=== PATIENT | male | born 1945 | race Caucasian/White ===

== ENCOUNTER 2018-03-27 03:02 | Inpatient (IN) | END 2018-04-01 16:43 | disposition home or self-care (01) | DRG 871 ==

== ENCOUNTER 2018-04-23 13:46 | Inpatient (IN) | END 2018-04-29 16:40 | disposition home or self-care (01) | DRG 713 ==

== ENCOUNTER 2019-02-12 10:43 | Inpatient (IN) | payer MEDICARE, OTHER ==
[~2019-02-12] VITALS: Ht 162.6 cm; Wt 73.0 kg
[~2019-02-12 10:43] MED LIST: LEVO500T48 PO; TAMS0.4C2 PO
--- NOTE | 2019-02-12 12:25 | ERD ---
ER Documentation Chief Complaint Chief Complaint lt side testicular pain /swelling , lt ear pain HPI 74-year-old male presenting with complaints of left testicular pain and swelling over the past 4 months. He states that he has tried to make an appointment with his urologist but was unable to stating that "he would not see me". He denies any associated dysuria. No alleviating or exacerbating factors. Pain is a 6 out of 10, aching. No associated fever, chills, nausea, vomiting. He does have difficulty urinating but no dysuria. He has a history of BPH with urinary tract calculi that were removed last year. He has also had a TURP. Denies weight loss, night sweats, or any other associated symptoms. ROS All systems reviewed and are negative except as per history of present illness. Medications Home Meds Reported Medications Lisinopril* (Lisinopril*) 20 Mg Tablet, 20 MG PO DAILY, #30 TAB 02/12/19 Labetalol Hcl* (Labetalol Hcl*) 100 Mg Tablet, 100 MG PO BID, TAB 02/12/19 Chlorthalidone* (Chlorthalidone*) 25 Mg Tablet, 25 MG PO DAILY, TAB 02/12/19 Levothyroxine Sodium* (Levothyroxine Sodium*) 50 Mcg Tablet, 50 MCG PO BEFORE BREAKFAST, #30 TAB 02/12/19 Amlodipine Besylate* (Amlodipine Besylate*) 10 Mg Tablet, 10 MG PO DAILY, #30 TAB 02/12/19 Finasteride* (Finasteride*) 5 Mg Tablet, 5 MG PO DAILY, TAB 02/12/19 Tamsulosin Hcl* (Flomax*) 0.4 Mg Cap.er.24h, 0.4 MG PO HS, CAP 02/12/19 Discontinued Reported Medications Tamsulosin Hcl* (Tamsulosin Hcl*) 0.4 Mg Cap.er.24h, 0.4 MG PO HS, CAP 03/27/18 Discontinued Scripts Levofloxacin* (Levaquin*) 500 Mg Tablet, 500 MG PO DAILY for 7 Days, #7 TAB Prov:CHRISTOPHER STEPHENSON 04/29/18 Allergies Allergies: Coded Allergies: No Known Allergy (Unverified , 02/12/19) PMhx/Soc History of Surgery: Yes (TURP) Anesthesia Reaction: No Hx Neurological Disorder: No Hx Respiratory Disorders: No Hx Cardiac Disorders: Yes (HTN) Hx Psychiatric Problems: No Hx Miscellaneous Medical Probl: Yes (BPH) Hx Alcohol Use: No Hx Substance Use: No Hx Tobacco Use: No FmHx Family History: No diabetes Physical Exam Vitals Vital Signs Date Temp Pulse Resp B/P (MAP) Pulse Ox O2 O2 Flow FiO2 Time Delivery Rate 02/12/19 98.2 64 18 158/74 100 Room Air 14:14 (102) 02/12/19 99.0 77 18 189/91 98 10:46 (123) Physical Exam Const: No acute distress Head: Atraumatic Eyes: Normal Conjunctiva ENT: Normal External Ears, Nose and Mouth. Neck: Full range of motion. No meningismus. Resp: Clear to auscultation bilaterally Cardio: Regular rate and rhythm, no murmurs Abd: Soft, non tender, non distended. Normal bowel sounds Exam: Scrotum: Normal Hernia: None Testes/Epid: Right testicle normal to palpation without tenderness. Left testicle mildly tender to palpation and enlarged compared to the right. No epididymal tenderness bilaterally Cremaster: Reflex intact Lymph: No inguinal lymphadenopathy Discharge: None Skin: No petechiae or rashes Back: No midline or flank tenderness Ext: No cyanosis, or edema Neur: Awake and alert Psych: Normal Mood and Affect Result Diagram: 02/12/19 1358 02/12/19 1358 Results 24 hrs Laboratory Tests Test 02/12/19 13:20 02/12/19 13:58 Urine Color ILIR Urine Clarity CLOUDY Urine pH 5.0 Urine Specific [place] 1.018 Urine Ketones NEGATIVE mg/dL Urine Nitrite NEGATIVE mg/dL Urine Bilirubin NEGATIVE mg/dL Urine Urobilinogen NEGATIVE mg/dL Urine Leukocyte Esterase 3+ Levi/ul Urine Microscopic RBC 7 /HPF Urine Microscopic WBC > 182 /HPF Urine Squamous Epithelial Cells FEW /HPF Urine Bacteria MODERATE /HPF Urine Mucus MANY /HPF Urine Hemoglobin NEGATIVE mg/dL Urine Glucose NEGATIVE mg/dL Urine Total Protein 2+ mg/dl White Blood Count 9.3 10^3/ul Red Blood Count 4.93 10^6/ul Hemoglobin 11.9 g/dl Hematocrit 38.4 % Mean Corpuscular Volume 77.9 fl Mean Corpuscular Hemoglobin 24.1 pg Mean Corpuscular Hemoglobin Concent 31.0 g/dl Red Cell Distribution Width 19.9 % Platelet Count 346 10^3/UL Mean Platelet Volume 8.7 fl Immature Granulocytes % 0.400 % Neutrophils % 64.8 % Lymphocytes % 22.4 % Monocytes % 9.7 % Eosinophils % 2.2 % Basophils % 0.5 % Nucleated Red Blood Cells % 0.0 /100WBC Immature Granulocytes # 0.040 10^3/ul Neutrophils # 6.0 10^3/ul Lymphocytes # 2.1 10^3/ul Monocytes # 0.9 10^3/ul Eosinophils # 0.2 10^3/ul Basophils # 0.1 10^3/ul Nucleated Red Blood Cells # 0.0 10^3/ul Sodium Level 143 mmol/L Potassium Level 4.2 mmol/L Chloride Level 106 mmol/L Carbon Dioxide Level 26 mmol/L Anion Gap 11 Blood Urea Nitrogen 14 mg/dl Creatinine 0.88 mg/dl Est Glomerular Filtrat Rate mL/min mL/min Glucose Level 109 mg/dl Calcium Level 10.4 mg/dl Total Bilirubin 0.4 mg/dl Direct Bilirubin 0.00 mg/dl Indirect Bilirubin 0.4 mg/dl Aspartate Amino Transf (AST/SGOT) 27 IU/L Alanine Aminotransferase (ALT/SGPT) 26 IU/L Alkaline Phosphatase 106 IU/L Total Protein 9.1 g/dl Albumin 4.4 g/dl Globulin 4.70 g/dl Albumin/Globulin Ratio 0.93 Current Medications Medications Dose Sig/Eda Start Time Status Last (Trade) Ordered Route PRN Stop Time Admin Dose Reason Admin 150 ml @ ONCE STAT 02/12/19 DC 02/12/19 Levofloxacin/ 100 mls/hr IVPB 14:26 14:51 Dextrose 02/12/19 15:55 Ketorolac 30 mg ONCE STAT 02/12/19 DC 02/12/19 Tromethamine IV 15:03 15:25 (Toradol) 02/12/19 15:04 Ondansetron 4 mg BRIDGE ORDER 02/12/19 DC HCl (Zofran PRN IV 15:30 Inj) NAUSEA/VOMITI 02/12/19 15:55 NG 650 mg ER BRIDGE 02/12/19 DC Acetaminophen PRN PO 15:30 (Tylenol .MILD PAIN 02/12/19 15:54 Tab) 1-3 OR TEMP Amlodipine 10 mg DAILY PO 02/13/19 Besylate 09:00 (Norvasc) 25 mg DAILY PO 02/13/19 Chlorthalidon 09:00 e (Hygroton) Finasteride 5 mg DAILY PO 02/13/19 (Proscar) 09:00 Labetalol 100 mg BID PO 02/12/19 UNV HCl 21:00 (Normodyne) 50 mcg BEFORE 02/13/19 Levothyroxine BREAKFAST 07:00 Sodium PO (Synthroid) Lisinopril 20 mg DAILY PO 02/13/19 (Zestril) 09:00 Tamsulosin 0.4 mg HS PO 02/12/19 HCl 21:00 (Flomax) IV Flush 3 ml PER 02/12/19 (NS 3 ml) PROTOCOL IV 15:30 Ondansetron 4 mg Q6H PRN 02/12/19 HCl (Zofran IV 15:30 Inj) NAUSEA/VOMITI NG 650 mg Q6H PRN 02/12/19 Acetaminophen PO .PAIN 1-3 15:30 (Tylenol OR TEMP Tab) 1 tab Q6H PRN 02/12/19 Acetaminophen PO .MOD PAIN 15:30 / 4-6 Hydrocodone Bitart ([place] (5/325)) Morphine 2 mg Q4H PRN 02/12/19 UNV Sulfate IV .SEVERE 15:30 (morphine) PAIN 7-10 Magnesium 30 ml DAILY PRN 02/12/19 Hydroxide PO 15:30 (Milk Of Mag) .CONSTIPATION Famotidine 20 mg Q12 PO 02/12/19 UNV (Pepcid) 21:00 Ceftriaxone 50 ml @ Q24H IVPB 02/12/19 UNV Sodium 100 mls/hr 16:00 Procedures/MDM EMERGENT LABS AND DIAGNOSTIC STUDIES: Lab Results above were reviewed and interpreted by me. CBC: no clinically significant anemia or evidence of infection CMP: No evidence of clinically significant electrolyte abnormality, acidosis, renal failure, hypoglycemia, liver disease, or biliary obstruction UA: + evidence of infection Radiology Results as interpreted by Radiology below were reviewed by Jean Rose MD: US Scrotum: Infiltrating heterogeneous echogenicity lesion along the inferior and midportion of the left testicle measuring 2.0 x 1.0 x 1.3 cm. Findings are suspicious for neoplasm. Hematoma or infection could have a similar appearance. Clinical correlation is required. Initial Nursing notes reviewed. Previous Medical Records requested via the Electronic Health Record. EMERGENCY DEPARTMENT COURSE / MEDICAL DECISION MAKING: Patient is presenting with left scrotal swelling that has progressively worsened. No evidence of Edi's gangrene or infection. Ultrasound showed evidence of extratesticular mass. He did have a UTI for which she was given levofloxacin. No evidence of sepsis at this time. Spoke with the urologist on- call, who recommended admission for further work-up. Accepting Care Team: Current data and ongoing care discussed. Time: Time of admission Primary Provider: Dr. Manning Consulting: Dr. Palma Outstanding Data: none Departure Diagnosis: Primary Impression: Scrotal mass Additional Impression: Left testicular pain Condition: Stable KARLA ROSE MD Feb 12, 2019 12:25
[2019-02-12] MEDS ORDERED: TAMS-14 PO (13:18)
[2019-02-12] MEDS ORDERED: FINA5TAB4 PO (13:18)
[2019-02-12] MEDS ORDERED: AMLO-147 PO (13:19)
[2019-02-12] MEDS ORDERED: LEVO50TA7 PO (13:19)
[2019-02-12] MEDS ORDERED: CHLO25TA2 PO (13:20)
[2019-02-12] MEDS ORDERED: LABE100T7 PO (13:20)
[2019-02-12] MEDS ORDERED: LISI-471 PO (13:20)
[2019-02-12] MEDS ORDERED: LEVOFLOXACIN 750MG/D5W (PMX) 150 ML IVPB STA (14:26)
[2019-02-12] MEDS ORDERED: KETOROLAC 30 MG INJ IV STA (15:03)
[2019-02-12] MEDS ORDERED: ONDANSETRON 4 MG INJ IV PRN ×2 (15:30)
[2019-02-12] MEDS ORDERED: ACETAMINOPHEN 325 MG TAB PO PRN ×2 (15:30)
[2019-02-12] MEDS ORDERED: morphine 2 MG INJ IV PRN (15:30)
[2019-02-12] MEDS ORDERED: NACL 0.9% 3 ML SYG IV SCH (15:30)
[2019-02-12] MEDS ORDERED: MAGNESIUM HYDROXIDE 30ML CUP PO PRN (15:30)
--- NOTE | 2019-02-12 15:52 | HP ---
Date/Time of Note Date/Time of Note DATE: 02/12/19 TIME: 15:48 Assessment/Plan Lines/Catheters IV C[facility] Type (from [facility]): Saline Lock Assessment/Plan Hospital Course Assessment and plan 1. infiltrating heterogeneous echogenicity lesion along the inferior and midportion of the left testicle measuring 2.0 x 1.0 x 1.3 cm. Urologist notified. Continue with analgesics for now. Follow-up with recommendations. 2. Urinary tract infection. Follow-up on urine culture. Will place on antibiotic for now. 3. BPH. Resume on finasteride and tamsulosin. 4. Hypothyroidism. Continue levothyroxine. 5. Hypertension. Continue antihypertensives. Will adjust as needed. 6. Microcytic hypochromic anemia. Follow-up on iron level. Discussed POC with Dr. Queen Result Diagram: 02/12/19 1358 02/12/19 1358 Results 24hrs Laboratory Tests Test 02/12/19 13:20 02/12/19 13:58 Urine Color ILIR Urine Clarity CLOUDY A Urine pH 5.0 Urine Specific [place] 1.018 Urine Ketones NEGATIVE Urine Nitrite NEGATIVE Urine Bilirubin NEGATIVE Urine Urobilinogen NEGATIVE Urine Leukocyte Esterase 3+ H Urine Microscopic RBC 7 H Urine Microscopic WBC > 182 H Urine Squamous Epithelial Cells FEW Urine Bacteria MODERATE Urine Mucus MANY A Urine Hemoglobin NEGATIVE Urine Glucose NEGATIVE Urine Total Protein 2+ H White Blood Count 9.3 # Red Blood Count 4.93 # Hemoglobin 11.9 #L Hematocrit 38.4 #L Mean Corpuscular Volume 77.9 L Mean Corpuscular Hemoglobin 24.1 L Mean Corpuscular Hemoglobin Concent 31.0 L Red Cell Distribution Width 19.9 #H Platelet Count 346 # Mean Platelet Volume 8.7 Immature Granulocytes % 0.400 Neutrophils % 64.8 Lymphocytes % 22.4 Monocytes % 9.7 Eosinophils % 2.2 Basophils % 0.5 Nucleated Red Blood Cells % 0.0 Immature Granulocytes # 0.040 H Neutrophils # 6.0 Lymphocytes # 2.1 Monocytes # 0.9 Eosinophils # 0.2 Basophils # 0.1 Nucleated Red Blood Cells # 0.0 Sodium Level 143 Potassium Level 4.2 Chloride Level 106 Carbon Dioxide Level 26 Anion Gap 11 Blood Urea Nitrogen 14 Creatinine 0.88 Est Glomerular Filtrat Rate mL/min Glucose Level 109 Calcium Level 10.4 H Total Bilirubin 0.4 Direct Bilirubin 0.00 Indirect Bilirubin 0.4 Aspartate Amino Transf (AST/SGOT) 27 Alanine Aminotransferase (ALT/SGPT) 26 Alkaline Phosphatase 106 Total Protein 9.1 H Albumin 4.4 Globulin 4.70 H Albumin/Globulin Ratio 0.93 HPI/ROS Admit Date/Time Admit Date/Time Hx of Present Illness This is a 74-year-old male with history of hypertension, BPH, nephrolithiasis and hydronephrosis, TURP procedure in March 2018, who came to the hospital due to reports of testicular pain. Patient reports that he had recent prostate surgery in March 2018. He states that he is not sure if his current testicular pain is from that. Reports that for the past 4 months he has been h aving increased swelling on left testicle with associated pain. He does follow- up with his primary care provider in [place] Dr. Hernandez. He states that when he was examined by them previously that there was no mention for any seriousness for his pain. Due to increasing swelling and pain on left testicle patient did come to the hospital for further evaluation. Patient did get testicular ultras ound that did show Infiltrating heterogeneous echogenicity lesion along the inferior and midportion of the left testicle measuring 2.0 x 1.0 x 1.3 cm. Findings are suspicious for neoplasm. He also did have positive leukocyte esterase test suspicious for UTI. He was afebrile on arrival. No leukocytosis noted. Patient denies any other associated symptoms. Denies any chest pain or fever. Denies any weight loss. Only reports having increased testicular pain. Denies any discharge or hematuria. We will evaluate him for the aformentiond issues. ROS 12 point review of systems obtained entirely negative except that mentioned in the history of present illness PMH/Family/Social Past Medical History Medical/surgical history 1. Hypertension 2. BPH 3. Nephrolithiasis with hydronephrosis 4. TURP procedure in March 2018 Medications Current Medications Levofloxacin/ Dextrose 150 ml @ 100 mls/hr ONCE STAT IVPB Last administered on 02/12/19at 14:51; Admin Dose 100 MLS/HR; Start 02/12/19 at 14:26; Stop 02/12/19 at 15:55 Ondansetron HCl (Zofran Inj) 4 mg BRIDGE ORDER PRN IV NAUSEA/VOMITING; Start 02/12/19 at 15:30; Stop 02/13/19 at 15:29 Acetaminophen (Tylenol Tab) 650 mg ER BRIDGE PRN PO .MILD PAIN 1-3 OR TEMP; Start 02/12/19 at 15:30; Stop 02/13/19 at 15:29 Amlodipine Besylate (Norvasc) 10 mg DAILY PO ; Start 02/13/19 at 09:00; Status UNV Chlorthalidone (Hygroton) 25 mg DAILY PO ; Start 02/13/19 at 09:00; Status UNV Finasteride (Proscar) 5 mg DAILY PO ; Start 02/13/19 at 09:00; Status UNV Labetalol HCl (Normodyne) 100 mg BID PO ; Start 02/12/19 at 21:00; Status UNV Levothyroxine Sodium (Synthroid) 50 mcg BEFORE BREAKFAST PO ; Start 02/13/19 at 07:00; Status UNV Lisinopril (Zestril) 20 mg DAILY PO ; Start 02/13/19 at 09:00; Status UNV Tamsulosin HCl (Flomax) 0.4 mg HS PO ; Start 02/12/19 at 21:00; Status UNV IV Flush (NS 3 ml) 3 ml PER PROTOCOL IV ; Start 02/12/19 at 15:30; Status UNV Ondansetron HCl (Zofran Inj) 4 mg Q6H PRN IV NAUSEA/VOMITING; Start 02/12/19 at 15:30; Status UNV Acetaminophen (Tylenol Tab) 650 mg Q6H PRN PO .PAIN 1-3 OR TEMP; Start 02/12/19 at 15:30; Status UNV Acetaminophen/ Hydrocodone Bitart ([place] (5/325)) 1 tab Q6H PRN PO .MOD PAIN 4- 6; Start 02/12/19 at 15:30; Status UNV Morphine Sulfate (morphine) 2 mg Q4H PRN IV .SEVERE PAIN 7-10; Start 02/12/19 at 15:30; Status UNV Magnesium Hydroxide (Milk Of Mag) 30 ml DAILY PRN PO .CONSTIPATION; Start 02/12/19 at 15:30; Status UNV Famotidine (Pepcid) 20 mg Q12 PO ; Start 02/12/19 at 21:00; Status UNV Coded Allergies: No Known Allergy (Unverified , 02/12/19) Past Surgical History Past Surgical Hx: other Family History Significant Family History: no pertinent family hx Social History Smoking Status: Never smoker Exam/Review of Systems Vital Signs Vitals Vital Signs Date Temp Pulse Resp B/P (MAP) Pulse Ox O2 O2 Flow FiO2 Time Delivery Rate 02/12/19 98.2 64 18 158/74 100 Room Air 14:14 (102) Exam Constitutional: alert, oriented Psych: nl mood/affect Head: normocephalic Eyes: nl conjunctiva Neck: supple Respiratory: clear to auscultation Cardiovascular: regular rate and rhythm Gastrointestinal: soft, non-tender Musculoskeletal: nl extremities to inspection Neurological: OBGYN SPECIALIST II-XII intact, nl mental status, nl speech Skin: nl GWEN Turcios NP Feb 12, 2019 15:52
[2019-02-12] MEDS: CEFTRIAXONE 1 GM/50 ML (PMX) 50 ML IVPB SCH (16:23)
[2019-02-12 18:00] VITALS: BP 162/88; PULSE 66; RESP 16
[2019-02-12 18:15] VITALS: Ht 162.6 cm; Wt 73.0 kg
[2019-02-12] MEDS: HYDROCODONE/APAP (5/325) TAB PO PRN (18:30)
[2019-02-12 20:00] VITALS: BP 129/73; PULSE 65; RESP 14
[2019-02-12] MEDS: FAMOTIDINE 20 MG TAB PO SCH (20:48)
[2019-02-12] MEDS: TAMSULOSIN (SR) 0.4 MG CAP PO SCH (20:48)
[2019-02-12] MEDS: LABETALOL 100 MG TAB PO SCH (20:49)
--- NOTE | 2019-02-12 20:57 | CONS ---
Assessment/Plan Assessment/Plan Hospital Course (Demo Recall) 74-year-old male presented to the emergency room with left testicular pain. Patient states that for the past 4 months he has been having increased swelling on left testicle with associated pain.. Patient is known to have had a history of bladder stone that was removed. He also had an enlarged prostate for which he underwent transurethral resection in March 2018. He has been voiding well and the urine has been clear. On the physical examination the left testis is hard and clinically consistent with the left epididymoorchitis. Recommend: Antibiotic, urine culture has been sent already. There is no indication for surgical intervention at the present time. Consultation Date/Type/Reason Admit Date/Time Date of Consultation: Feb 12, 2019 Type of Consult Urology Reason for Consultation Left testicular pain Requesting Provider: MUSA SANDERS Date/Time of Note DATE: 02/12/19 TIME: 20:45 Hx of Present Illness 74-year-old male presented to the emergency room with left testicular pain. Patient states that for the past 4 months he has been having increased swelling on left testicle with associated pain.. Patient is known to have had a history of bladder stone that was removed. He also had an enlarged prostate for which he underwent transurethral resection in March 2018. He has been voiding well and the urine has been clear. Constitutional: no complaints; No chills Eyes: no complaints ENT: no complaints Respiratory: no complaints; No shortness of breath Cardiovascular: no complaints; No chest pain Gastrointestinal: no complaints; No nausea, No vomiting Genitourinary: other (Pain and swelling in the left testicle) Musculoskeletal: no complaints Skin: no complaints Neurologic: no complaints Endocrine: no complaints Psychological: no complaints Immunologic: no complaints Past Medical History Medical History: diabetes, hypertension, hypothyroid, renal disease, other (History of kidney stones as well) Home Meds Reported Medications Lisinopril* (Lisinopril*) 20 Mg Tablet, 20 MG PO DAILY, #30 TAB 02/12/19 Labetalol Hcl* (Labetalol Hcl*) 100 Mg Tablet, 100 MG PO BID, TAB 02/12/19 Chlorthalidone* (Chlorthalidone*) 25 Mg Tablet, 25 MG PO DAILY, TAB 02/12/19 Levothyroxine Sodium* (Levothyroxine Sodium*) 50 Mcg Tablet, 50 MCG PO BEFORE BREAKFAST, #30 TAB 02/12/19 Amlodipine Besylate* (Amlodipine Besylate*) 10 Mg Tablet, 10 MG PO DAILY, #30 TAB 02/12/19 Finasteride* (Finasteride*) 5 Mg Tablet, 5 MG PO DAILY, TAB 02/12/19 Tamsulosin Hcl* (Flomax*) 0.4 Mg Cap.er.24h, 0.4 MG PO HS, CAP 02/12/19 Discontinued Reported Medications Tamsulosin Hcl* (Tamsulosin Hcl*) 0.4 Mg Cap.er.24h, 0.4 MG PO HS, CAP 03/27/18 Discontinued Scripts Levofloxacin* (Levaquin*) 500 Mg Tablet, 500 MG PO DAILY for 7 Days, #7 TAB Prov:CHRISTOPHER STEPHENSON 04/29/18 Medications Current Medications Amlodipine Besylate (Norvasc) 10 mg DAILY PO ; Start 02/13/19 at 09:00 Chlorthalidone (Hygroton) 25 mg DAILY PO ; Start 02/13/19 at 09:00 Finasteride (Proscar) 5 mg DAILY PO ; Start 02/13/19 at 09:00 Labetalol HCl (Normodyne) 100 mg BID PO ; Start 02/12/19 at 21:00 Levothyroxine Sodium (Synthroid) 50 mcg BEFORE BREAKFAST PO ; Start 02/13/19 at 07:00 Lisinopril (Zestril) 20 mg DAILY PO ; Start 02/13/19 at 09:00 Tamsulosin HCl (Flomax) 0.4 mg HS PO ; Start 02/12/19 at 21:00 IV Flush (NS 3 ml) 3 ml PER PROTOCOL IV ; Start 02/12/19 at 15:30 Ondansetron HCl (Zofran Inj) 4 mg Q6H PRN IV NAUSEA/VOMITING; Start 02/12/19 at 15:30 Acetaminophen (Tylenol Tab) 650 mg Q6H PRN PO .PAIN 1-3 OR TEMP; Start 02/12/19 at 15:30 Acetaminophen/ Hydrocodone Bitart ([place] (5/325)) 1 tab Q6H PRN PO .MOD PAIN 4- 6 Last administered on 02/12/19at 18:30; Admin Dose 1 TAB; Start 02/12/19 at 15:30 Morphine Sulfate (morphine) 2 mg Q4H PRN IV .SEVERE PAIN 7-10; Start 02/12/19 at 15:30 Magnesium Hydroxide (Milk Of Mag) 30 ml DAILY PRN PO .CONSTIPATION; Start 02/12/19 at 15:30 Famotidine (Pepcid) 20 mg Q12 PO ; Start 02/12/19 at 21:00 Ceftriaxone Sodium 50 ml @ 100 mls/hr Q24H IVPB Last administered on 02/12/19at 16:23; Admin Dose 100 MLS/HR; Start 02/12/19 at 16:00 Allergies: Coded Allergies: No Known Allergy (Unverified , 02/12/19) Past Surgical History Past Surgical Hx: other (Cystolitholopaxy, transurethral resection of prostate) Social History Alcohol Use: occasionally Smoking Status: Former smoker Drug Use: none Exam/Review of Systems Exam Vitals Vital Signs Date Temp Pulse Resp B/P (MAP) Pulse Ox O2 O2 Flow FiO2 Time Delivery Rate 02/12/19 98.2 65 14 129/73 96 20:00 (91) 02/12/19 Room Air 18:00 Constitutional: alert, oriented Psych: no complaints Head: normocephalic Eyes: nl conjunctiva ENMT: nl external ears & nose Neck: supple Respiratory: normal air movement; No wheezing Cardiovascular: No jugular venous distention (JVD) Gastrointestinal: soft, non-tender Genitourinary - Male: nl penis, other (Left testis is soft however he does have hard area consistent with epididymo-orchitis there is no fluctuation to suggest an abscess) Extremities: No calf tenderness Neurological: nl mental status Skin: nl turgor Results Result Diagram: 02/12/19 1358 02/12/19 1358 Results 24hrs Laboratory Tests Test 02/12/19 13:20 02/12/19 13:58 Urine Color ILIR Urine Clarity CLOUDY A Urine pH 5.0 Urine Specific [place] 1.018 Urine Ketones NEGATIVE Urine Nitrite NEGATIVE Urine Bilirubin NEGATIVE Urine Urobilinogen NEGATIVE Urine Leukocyte Esterase 3+ H Urine Microscopic RBC 7 H Urine Microscopic WBC > 182 H Urine Squamous Epithelial Cells FEW Urine Bacteria MODERATE Urine Mucus MANY A Urine Hemoglobin NEGATIVE Urine Glucose NEGATIVE Urine Total Protein 2+ H White Blood Count 9.3 # Red Blood Count 4.93 # Hemoglobin 11.9 #L Hematocrit 38.4 #L Mean Corpuscular Volume 77.9 L Mean Corpuscular Hemoglobin 24.1 L Mean Corpuscular Hemoglobin Concent 31.0 L Red Cell Distribution Width 19.9 #H Platelet Count 346 # Mean Platelet Volume 8.7 Immature Granulocytes % 0.400 Neutrophils % 64.8 Lymphocytes % 22.4 Monocytes % 9.7 Eosinophils % 2.2 Basophils % 0.5 Nucleated Red Blood Cells % 0.0 Immature Granulocytes # 0.040 H Neutrophils # 6.0 Lymphocytes # 2.1 Monocytes # 0.9 Eosinophils # 0.2 Basophils # 0.1 Nucleated Red Blood Cells # 0.0 Sodium Level 143 Potassium Level 4.2 Chloride Level 106 Carbon Dioxide Level 26 Anion Gap 11 Blood Urea Nitrogen 14 Creatinine 0.88 Est Glomerular Filtrat Rate mL/min Glucose Level 109 Calcium Level 10.4 H Total Bilirubin 0.4 Direct Bilirubin 0.00 Indirect Bilirubin 0.4 Aspartate Amino Transf (AST/SGOT) 27 Alanine Aminotransferase (ALT/SGPT) 26 Alkaline Phosphatase 106 Total Protein 9.1 H Albumin 4.4 Globulin 4.70 H Albumin/Globulin Ratio 0.93 Imaging Imaging Testicular ultrasound:Infiltrating heterogeneous echogenicity lesion along the inferior and midportion of the left testicle measuring 2.0 x 1.0 x 1.3 cm. Findings are suspicious for neoplasm. Hematoma or infection could have a similar appearance. Clinical correlation is required. Medications Medication Current Medications Amlodipine Besylate (Norvasc) 10 mg DAILY PO ; Start 02/13/19 at 09:00 Chlorthalidone (Hygroton) 25 mg DAILY PO ; Start 02/13/19 at 09:00 Finasteride (Proscar) 5 mg DAILY PO ; Start 02/13/19 at 09:00 Labetalol HCl (Normodyne) 100 mg BID PO ; Start 02/12/19 at 21:00 Levothyroxine Sodium (Synthroid) 50 mcg BEFORE BREAKFAST PO ; Start 02/13/19 at 07:00 Lisinopril (Zestril) 20 mg DAILY PO ; Start 02/13/19 at 09:00 Tamsulosin HCl (Flomax) 0.4 mg HS PO ; Start 02/12/19 at 21:00 IV Flush (NS 3 ml) 3 ml PER PROTOCOL IV ; Start 02/12/19 at 15:30 Ondansetron HCl (Zofran Inj) 4 mg Q6H PRN IV NAUSEA/VOMITING; Start 02/12/19 at 15:30 Acetaminophen (Tylenol Tab) 650 mg Q6H PRN PO .PAIN 1-3 OR TEMP; Start 02/12/19 at 15:30 Acetaminophen/ Hydrocodone Bitart ([place] (5/325)) 1 tab Q6H PRN PO .MOD PAIN 4- 6 Last administered on 02/12/19at 18:30; Admin Dose 1 TAB; Start 02/12/19 at 15:30 Morphine Sulfate (morphine) 2 mg Q4H PRN IV .SEVERE PAIN 7-10; Start 02/12/19 at 15:30 Magnesium Hydroxide (Milk Of Mag) 30 ml DAILY PRN PO .CONSTIPATION; Start 02/12/19 at 15:30 Famotidine (Pepcid) 20 mg Q12 PO ; Start 02/12/19 at 21:00 Ceftriaxone Sodium 50 ml @ 100 mls/hr Q24H IVPB Last administered on 02/12/19at 16:23; Admin Dose 100 MLS/HR; Start 02/12/19 at 16:00 CARLTON LOCO MD Feb 12, 2019 20:55
[2019-02-13 02:00] VITALS: BP 109/60; PULSE 60; RESP 16
[2019-02-13] MEDS: HYDROCODONE/APAP (5/325) TAB PO PRN (02:30)
[2019-02-13] MEDS: LEVOTHYROXINE 50 MCG TAB PO SCH (06:35)
[2019-02-13 08:00] VITALS: BP 162/71; PULSE 81; RESP 18
[2019-02-13] MEDS: LISINOPRIL 20 MG TAB PO SCH (10:42)
[2019-02-13] MEDS: FAMOTIDINE 20 MG TAB PO SCH ×2 (10:42→20:45)
[2019-02-13] MEDS: AMLODIPINE 10 MG TAB PO SCH (10:42)
[2019-02-13] MEDS: LABETALOL 100 MG TAB PO SCH ×2 (10:43→20:45)
[2019-02-13] MEDS: FINASTERIDE 5 MG TAB PO SCH (10:43)
[2019-02-13] MEDS: CHLORTHALIDONE 25 MG TAB PO SCH (10:43)
[2019-02-13 10:45] VITALS: BP 154/77; PULSE 57; RESP 18
--- NOTE | 2019-02-13 12:46 | PN ---
Date/Time of Note Date/Time of Note DATE: 02/13/19 TIME: 12:36 Assessment/Plan VTE Prophylaxis Risk score (from [facility])>0 risk: 2 SCD applied (from [facility]): Yes Pharmacological prophylaxis: LMWH Lines/Catheters IV Catheter Type (from [facility]): Saline Lock Urinary Cath still in place: No Assessment/Plan Hospital Course Assessment and plan 1. infiltrating heterogeneous echogenicity lesion along the inferior and midportion of the left testicle measuring 2.0 x 1.0 x 1.3 cm. Urologist notified. noted with left epididymoorchitis. Continue with analgesics for now. 2. Urinary tract infection. Follow-up on urine culture. continue abx ID consult 3. BPH. continue on finasteride and tamsulosin. 4. Hypothyroidism. Continue levothyroxine. 5. Hypertension. Continue antihypertensives. Will adjust as needed. 6. Microcytic hypochromic anemia. Discussed POC with Dr. Queen Result Diagram: 02/13/19 0458 02/13/19 0458 Results 24hrs Laboratory Tests Test 02/12/19 13:20 02/12/19 13:58 02/13/19 04:58 Urine Color ILIR Urine Clarity CLOUDY A Urine pH 5.0 Urine Specific [place] 1.018 Urine Ketones NEGATIVE Urine Nitrite NEGATIVE Urine Bilirubin NEGATIVE Urine Urobilinogen NEGATIVE Urine Leukocyte Esterase 3+ H Urine Microscopic RBC 7 H Urine Microscopic WBC > 182 H Urine Squamous Epithelial Cells FEW Urine Bacteria MODERATE Urine Mucus MANY A Urine Hemoglobin NEGATIVE Urine Glucose NEGATIVE Urine Total Protein 2+ H White Blood Count 9.3 # 7.8 Red Blood Count 4.93 # 4.48 L Hemoglobin 11.9 #L 10.8 L Hematocrit 38.4 #L 35.6 L Mean Corpuscular Volume 77.9 L 79.5 L Mean Corpuscular Hemoglobin 24.1 L 24.1 L Mean Corpuscular Hemoglobin Concent 31.0 L 30.3 L Red Cell Distribution Width 19.9 #H 19.7 H Platelet Count 346 # 312 Mean Platelet Volume 8.7 9.1 Immature Granulocytes % 0.400 0.600 H Neutrophils % 64.8 62.7 Lymphocytes % 22.4 21.6 Monocytes % 9.7 11.9 H Eosinophils % 2.2 2.6 Basophils % 0.5 0.6 Nucleated Red Blood Cells % 0.0 0.0 Immature Granulocytes # 0.040 H 0.050 H Neutrophils # 6.0 4.9 Lymphocytes # 2.1 1.7 Monocytes # 0.9 0.9 Eosinophils # 0.2 0.2 Basophils # 0.1 0.1 Nucleated Red Blood Cells # 0.0 0.0 Sodium Level 143 140 Potassium Level 4.2 4.0 Chloride Level 106 106 Carbon Dioxide Level 26 24 Anion Gap 11 10 Blood Urea Nitrogen 14 17 Creatinine 0.88 0.91 Est Glomerular Filtrat Rate mL/min Glucose Level 109 115 Calcium Level 10.4 H 9.7 Total Bilirubin 0.4 0.3 Direct Bilirubin 0.00 0.00 Indirect Bilirubin 0.4 0.3 Aspartate Amino Transf (AST/SGOT) 27 20 Alanine Aminotransferase (ALT/SGPT) 26 18 Alkaline Phosphatase 106 95 Total Protein 9.1 H 7.1 # Albumin 4.4 3.5 Globulin 4.70 H 3.60 H Albumin/Globulin Ratio 0.93 0.97 Hemoglobin A1c 5.8 Phosphorus Level 4.4 Magnesium Level 1.9 Triglycerides Level 282 H Cholesterol Level 178 LDL Cholesterol, Calculated 97 HDL Cholesterol 25 L Cholesterol/HDL Ratio 7.1 Thyroid Stimulating Hormone (TSH) 9.540 H Free Thyroxine Index Pending Thyroxine (T4) Pending Triiodothyronine (T3) Uptake 34.5 Subjective 24 Hr Interval Summary Free Text/Dictation patient resting at this time. reports less testicular pain Exam/Review of Systems Exam Vitals Vital Signs Date Temp Pulse Resp B/P (MAP) Pulse Ox O2 O2 Flow FiO2 Time Delivery Rate 02/13/19 57 18 154/77 96 10:45 (102) 02/13/19 98.8 08:00 02/12/19 Room Air 18:00 Intake and Output 02/12/19 02/12/19 02/13/19 1515:00 23:00 07:00 IntakeIntake Total 300 ml 500 ml OutputOutput Total 500 ml BalanceBalance -200 ml 500 ml Constitutional: alert, oriented Psych: nl mood/affect Eyes: nl conjunctiva Neck: supple, non-tender Respiratory: clear to auscultation Cardiovascular: regular rate and rhythm Gastrointestinal: soft, non-tender Genitourinary - Male: other (left testicular mass ) Musculoskeletal: nl extremities to inspection; No swelling 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, nl mental status, nl speech Skin: nl turgor Results Results 24hrs Laboratory Tests Test 02/12/19 13:20 02/12/19 13:58 02/13/19 04:58 Urine Color ILIR Urine Clarity CLOUDY A Urine pH 5.0 Urine Specific [place] 1.018 Urine Ketones NEGATIVE Urine Nitrite NEGATIVE Urine Bilirubin NEGATIVE Urine Urobilinogen NEGATIVE Urine Leukocyte Esterase 3+ H Urine Microscopic RBC 7 H Urine Microscopic WBC > 182 H Urine Squamous Epithelial Cells FEW Urine Bacteria MODERATE Urine Mucus MANY A Urine Hemoglobin NEGATIVE Urine Glucose NEGATIVE Urine Total Protein 2+ H White Blood Count 9.3 # 7.8 Red Blood Count 4.93 # 4.48 L Hemoglobin 11.9 #L 10.8 L Hematocrit 38.4 #L 35.6 L Mean Corpuscular Volume 77.9 L 79.5 L Mean Corpuscular Hemoglobin 24.1 L 24.1 L Mean Corpuscular Hemoglobin Concent 31.0 L 30.3 L Red Cell Distribution Width 19.9 #H 19.7 H Platelet Count 346 # 312 Mean Platelet Volume 8.7 9.1 Immature Granulocytes % 0.400 0.600 H Neutrophils % 64.8 62.7 Lymphocytes % 22.4 21.6 Monocytes % 9.7 11.9 H Eosinophils % 2.2 2.6 Basophils % 0.5 0.6 Nucleated Red Blood Cells % 0.0 0.0 Immature Granulocytes # 0.040 H 0.050 H Neutrophils # 6.0 4.9 Lymphocytes # 2.1 1.7 Monocytes # 0.9 0.9 Eosinophils # 0.2 0.2 Basophils # 0.1 0.1 Nucleated Red Blood Cells # 0.0 0.0 Sodium Level 143 140 Potassium Level 4.2 4.0 Chloride Level 106 106 Carbon Dioxide Level 26 24 Anion Gap 11 10 Blood Urea Nitrogen 14 17 Creatinine 0.88 0.91 Est Glomerular Filtrat Rate mL/min Glucose Level 109 115 Calcium Level 10.4 H 9.7 Total Bilirubin 0.4 0.3 Direct Bilirubin 0.00 0.00 Indirect Bilirubin 0.4 0.3 Aspartate Amino Transf (AST/SGOT) 27 20 Alanine Aminotransferase (ALT/SGPT) 26 18 Alkaline Phosphatase 106 95 Total Protein 9.1 H 7.1 # Albumin 4.4 3.5 Globulin 4.70 H 3.60 H Albumin/Globulin Ratio 0.93 0.97 Hemoglobin A1c 5.8 Phosphorus Level 4.4 Magnesium Level 1.9 Triglycerides Level 282 H Cholesterol Level 178 LDL Cholesterol, Calculated 97 HDL Cholesterol 25 L Cholesterol/HDL Ratio 7.1 Thyroid Stimulating Hormone (TSH) 9.540 H Free Thyroxine Index Pending Thyroxine (T4) Pending Triiodothyronine (T3) Uptake 34.5 Medications Medication Current Medications Amlodipine Besylate (Norvasc) 10 mg DAILY PO Last administered on 02/13/19 10:42; Admin Dose 10 MG; Start 02/13/19 at 09:00 Chlorthalidone (Hygroton) 25 mg DAILY PO Last administered on 02/13/19 10:43; Admin Dose 25 MG; Start 02/13/19 at 09:00 Finasteride (Proscar) 5 mg DAILY PO Last administered on 02/13/19 10:43; Admin Dose 5 MG; Start 02/13/19 at 09:00 Labetalol HCl (Normodyne) 100 mg BID PO Last administered on 02/13/19 10:43; Admin Dose 100 MG; Start 02/12/19 at 21:00 Levothyroxine Sodium (Synthroid) 50 mcg BEFORE BREAKFAST PO Last administered on 02/13/19 06:35; Admin Dose 50 MCG; Start 02/13/19 at 07:00 Lisinopril (Zestril) 20 mg DAILY PO Last administered on 02/13/19 10:42; Admin Dose 20 MG; Start 02/13/19 at 09:00 Tamsulosin HCl (Flomax) 0.4 mg HS PO Last administered on 02/12/19at 20:48; Admin Dose 0.4 MG; Start 02/12/19 at 21:00 IV Flush (NS 3 ml) 3 ml PER PROTOCOL IV ; Start 02/12/19 at 15:30 Ondansetron HCl (Zofran Inj) 4 mg Q6H PRN IV NAUSEA/VOMITING; Start 02/12/19 at 15:30 Acetaminophen (Tylenol Tab) 650 mg Q6H PRN PO .PAIN 1-3 OR TEMP; Start 02/12/19 at 15:30 Acetaminophen/ Hydrocodone Bitart ([place] (5/325)) 1 tab Q6H PRN PO .MOD PAIN 4- 6 Last administered on 02/13/19at 02:30; Admin Dose 1 TAB; Start 02/12/19 at 15:30 Morphine Sulfate (morphine) 2 mg Q4H PRN IV .SEVERE PAIN 7-10; Start 02/12/19 at 15:30 Magnesium Hydroxide (Milk Of Mag) 30 ml DAILY PRN PO .CONSTIPATION; Start 02/12/19 at 15:30 Famotidine (Pepcid) 20 mg Q12 PO Last administered on 02/13/19at 10:42; Admin Dose 20 MG; Start 02/12/19 at 21:00 Ceftriaxone Sodium 50 ml @ 100 mls/hr Q24H IVPB Last administered on 02/12/19at 16:23; Admin Dose 100 MLS/HR; Start 02/12/19 at 16:00 GWEN KAISER NP Feb 13, 2019 12:46
[2019-02-13 14:00] VITALS: BP 146/74; PULSE 76; RESP 18
[2019-02-13] MEDS: CEFTRIAXONE 1 GM/50 ML (PMX) 50 ML IVPB SCH (16:12)
--- NOTE | 2019-02-13 16:50 | CONS ---
DATE OF ADMISSION: 02/12/2019 DATE OF CONSULTATION: 02/13/2019 TYPE OF CONSULTATION: Infectious Disease. REASON FOR CONSULTATION: Antibiotic management. HISTORY OF PRESENT ILLNESS: Leo Mehta is a 74-year-old male who comes in wit h left-sided testicular pain and swelling. He also complains of left ear pain. Left testicle has be en swollen over the past four months. He said he tried to make an appointment with his urologist, ej t the urologist would not see him. He does not have dysuria. His pain is 6/10 and aching in nature. He has no fever or chills. He has no nausea or vomiting. He has difficulty urinating, but no dysu [place]. He has a history of BPH with urinary tract calculi that were removed last year. He also had a history of TURP. He does not have weight loss, night sweats or any other associated symptoms. The p atient has hypertension and has been placed on Levaquin. PAST MEDICAL HISTORY: As outlined. FAMILY HISTORY: Noncontributory. SOCIAL HISTORY: Does not smoke, drink or abuse drugs. ALLERGIES: NONE TO PENICILLIN, SULFA OR FOODS. MEDICATIONS: Per chart. REVIEW OF SYSTEMS: Noncontributory. PHYSICAL EXAMINATION: GENERAL: He is alert, responsive, in no acute distress. VITAL SIGNS: Stable. He is afebrile. SKIN: Without generalized rash. HEENT: Within normal limits. NECK: Supple. LYMPH NODES: None palpable. CHEST: Decreased breath sounds at the bases. HEART: Without murmur or gallop. ABDOMEN: Soft, nontender, without organosplenomegaly or masses. GENITOURINARY: Scrotum is normal. He has no hernias. The right testicle is normal. Left testicle is mildly tender to palpation and enlarged compared to the right. No epididymal tenderness bilateral ly. NEUROLOGICAL: Within normal limits. ANCILLARY LABORATORY DATA: White count is 9.3, H and H of 11.9 and 38.4, platelet count 346,000. BU N and creatinine 14/0.88. Glucose of 109. Urine shows 3+ leukocyte esterase, greater than 182 white cells per high-powered field with moderate bacteria. As noted, his white count was 9.3 with 65% neutrophils. The patient was started on Levaquin and ceft riaxone. There is no evidence of Edi's gangrene or infection. Ultrasound showed evidence of ex tratesticular mass. He did have a UTI and was started on Levaquin. HOSPITAL COURSE: The patient was seen by Dr. Palma in urology for the left testicular pain. His t esticle was consistent with left epididymal orchitis. Recommend antibiotics. Urine culture was sent . There is no indication for surgical intervention at the present time. The patient is on ceftriaxo ne. Levaquin was discontinued. We will observe his progress and if he has not progressed rapidly, w e will take a more vigorous approach to his antibiotic therapy. I want to thank the hospitalist, Dr. Palma, for asking us to see this patient. Dictated By: ALVIN MONTENEGRO MD, JD/MAMTA Conf#: [id number] DID#: [id number]
--- NOTE | 2019-02-13 19:29 | CONS ---
Consult Date/Type/Reason Admit Date/Time Feb 12, 2019 at 15:13 Initial Consult Date 02/12/19 Type of Consultation: Urology Reason for Consultation Left epididymoorchitis Requesting Provider: MUSA SANDERS Date/Time of Note DATE: 02/13/19 TIME: 19:26 Subjective Patient states that he is feeling better and his pain is less Objective Vitals Vital Signs Date Temp Pulse Resp B/P (MAP) Pulse Ox O2 O2 Flow FiO2 Time Delivery Rate 02/13/19 98.0 76 18 146/74 96 14:00 (98) 02/12/19 Room Air 18:00 Intake and Output 02/12/19 02/12/19 02/13/19 1515:00 23:00 07:00 IntakeIntake Total 300 ml 500 ml OutputOutput Total 500 ml BalanceBalance -200 ml 500 ml Exam The left testis and epididymis remains hard but less painful and less swollen Results/Medications Result Diagram: 02/13/19 0458 02/13/19 0458 Results 24 hrs Laboratory Tests Test 02/13/19 04:52 02/13/19 04:58 Iron Level 40 Total Iron Binding Capacity 385 Percent Iron Saturation 10 L White Blood Count 7.8 Red Blood Count 4.48 L Hemoglobin 10.8 L Hematocrit 35.6 L Mean Corpuscular Volume 79.5 L Mean Corpuscular Hemoglobin 24.1 L Mean Corpuscular Hemoglobin Concent 30.3 L Red Cell Distribution Width 19.7 H Platelet Count 312 Mean Platelet Volume 9.1 Immature Granulocytes % 0.600 H Neutrophils % 62.7 Lymphocytes % 21.6 Monocytes % 11.9 H Eosinophils % 2.6 Basophils % 0.6 Nucleated Red Blood Cells % 0.0 Immature Granulocytes # 0.050 H Neutrophils # 4.9 Lymphocytes # 1.7 Monocytes # 0.9 Eosinophils # 0.2 Basophils # 0.1 Nucleated Red Blood Cells # 0.0 Sodium Level 140 Potassium Level 4.0 Chloride Level 106 Carbon Dioxide Level 24 Anion Gap 10 Blood Urea Nitrogen 17 Creatinine 0.91 Est Glomerular Filtrat Rate mL/min Glucose Level 115 Hemoglobin A1c 5.8 Calcium Level 9.7 Phosphorus Level 4.4 Magnesium Level 1.9 Total Bilirubin 0.3 Direct Bilirubin 0.00 Indirect Bilirubin 0.3 Aspartate Amino Transf (AST/SGOT) 20 Alanine Aminotransferase (ALT/SGPT) 18 Alkaline Phosphatase 95 Total Protein 7.1 # Albumin 3.5 Globulin 3.60 H Albumin/Globulin Ratio 0.97 Triglycerides Level 282 H Cholesterol Level 178 LDL Cholesterol, Calculated 97 HDL Cholesterol 25 L Cholesterol/HDL Ratio 7.1 Thyroid Stimulating Hormone (TSH) 9.540 H Free Thyroxine Index 1.76 Thyroxine (T4) 5.1 L Triiodothyronine (T3) Uptake 34.5 Home Meds Reported Medications Lisinopril* (Lisinopril*) 20 Mg Tablet, 20 MG PO DAILY, #30 TAB 02/12/19 Labetalol Hcl* (Labetalol Hcl*) 100 Mg Tablet, 100 MG PO BID, TAB 02/12/19 Chlorthalidone* (Chlorthalidone*) 25 Mg Tablet, 25 MG PO DAILY, TAB 02/12/19 Levothyroxine Sodium* (Levothyroxine Sodium*) 50 Mcg Tablet, 50 MCG PO BEFORE BREAKFAST, #30 TAB 02/12/19 Amlodipine Besylate* (Amlodipine Besylate*) 10 Mg Tablet, 10 MG PO DAILY, #30 TAB 02/12/19 Finasteride* (Finasteride*) 5 Mg Tablet, 5 MG PO DAILY, TAB 02/12/19 Tamsulosin Hcl* (Flomax*) 0.4 Mg Cap.er.24h, 0.4 MG PO HS, CAP 02/12/19 Discontinued Reported Medications Tamsulosin Hcl* (Tamsulosin Hcl*) 0.4 Mg Cap.er.24h, 0.4 MG PO HS, CAP 03/27/18 Discontinued Scripts Levofloxacin* (Levaquin*) 500 Mg Tablet, 500 MG PO DAILY for 7 Days, #7 TAB Prov:CHRISTOPHER STEPHENSON 04/29/18 Medications Current Medications Amlodipine Besylate (Norvasc) 10 mg DAILY PO Last administered on 02/13/19at 1 0:42; Admin Dose 10 MG; Start 02/13/19 at 09:00 Chlorthalidone (Hygroton) 25 mg DAILY PO Last administered on 02/13/19at 10:43; Admin Dose 25 MG; Start 02/13/19 at 09:00 Finasteride (Proscar) 5 mg DAILY PO Last administered on 02/13/19at 10:43; Admin Dose 5 MG; Start 02/13/19 at 09:00 Labetalol HCl (Normodyne) 100 mg BID PO Last administered on 02/13/19 10:43; Admin Dose 100 MG; Start 02/12/19 at 21:00 Levothyroxine Sodium (Synthroid) 50 mcg BEFORE BREAKFAST PO Last administered on 02/13/19 06:35; Admin Dose 50 MCG; Start 02/13/19 at 07:00 Lisinopril (Zestril) 20 mg DAILY PO Last administered on 02/13/19 10:42; Admin Dose 20 MG; Start 02/13/19 at 09:00 Tamsulosin HCl (Flomax) 0.4 mg HS PO Last administered on 02/12/19 20:48; Admin Dose 0.4 MG; Start 02/12/19 at 21:00 IV Flush (NS 3 ml) 3 ml PER PROTOCOL IV ; Start 02/12/19 at 15:30 Ondansetron HCl (Zofran Inj) 4 mg Q6H PRN IV NAUSEA/VOMITING; Start 02/12/19 at 15:30 Acetaminophen (Tylenol Tab) 650 mg Q6H PRN PO .PAIN 1-3 OR TEMP; Start 02/12/19 at 15:30 Acetaminophen/ Hydrocodone Bitart ([place] (5/325)) 1 tab Q6H PRN PO .MOD PAIN 4- 6 Last administered on 02/13/19at 02:30; Admin Dose 1 TAB; Start 02/12/19 at 15:30 Morphine Sulfate (morphine) 2 mg Q4H PRN IV .SEVERE PAIN 7-10; Start 02/12/19 at 15:30 Magnesium Hydroxide (Milk Of Mag) 30 ml DAILY PRN PO .CONSTIPATION; Start 02/12/19 at 15:30 Famotidine (Pepcid) 20 mg Q12 PO Last administered on 02/13/19 10:42; Admin Dose 20 MG; Start 02/12/19 at 21:00 Ceftriaxone Sodium 50 ml @ 100 mls/hr Q24H IVPB Last administered on 02/13/19 16:12; Admin Dose 100 MLS/HR; Start 02/12/19 at 16:00 Enoxaparin Sodium (Lovenox) 40 mg DAILY SC ; Start 02/14/19 at 09:00 Assessment/Plan Hospital Course (Demo Recall) 74-year-old male presented to the emergency room with left testicular pain. Patient states that for the past 4 months he has been having increased swelling on left testicle with associated pain.. Patient is known to have had a history of bladder stone that was removed. He also had an enlarged prostate for which he underwent transurethral resection in March 2018. He has been voiding well and the urine has been clear. Patient was admitted with left epididymoorchitis. His pain has come down. Urine culture showing 100,000 colony per mL of gram-negative rods. Sensitivities pending. Plan: Continue the antibiotics until we get the sensitivity of the urine culture then we could discharge him home on the appropriate antibiotic. CARLTON LOCO MD Feb 13, 2019 19:29
[2019-02-13 20:00] VITALS: BP 128/68; PULSE 64; RESP 18
[2019-02-13] MEDS: TAMSULOSIN (SR) 0.4 MG CAP PO SCH (20:45)
[2019-02-14 02:00] VITALS: BP 114/66; PULSE 69; RESP 17
[2019-02-14] MEDS: LEVOTHYROXINE 50 MCG TAB PO SCH (06:12)
[2019-02-14 08:00] VITALS: BP 136/85; PULSE 82; RESP 18
[2019-02-14] MEDS: FINASTERIDE 5 MG TAB PO SCH (08:51)
[2019-02-14] MEDS: CHLORTHALIDONE 25 MG TAB PO SCH (08:52)
[2019-02-14] MEDS: LISINOPRIL 20 MG TAB PO SCH (08:52)
[2019-02-14] MEDS: AMLODIPINE 10 MG TAB PO SCH (08:52)
[2019-02-14] MEDS: LABETALOL 100 MG TAB PO SCH (08:52)
[2019-02-14] MEDS: FAMOTIDINE 20 MG TAB PO SCH (08:53)
[2019-02-14] MEDS ORDERED: ENOXAPARIN 40 MG/0.4 ML SYG SC SCH (09:00)
[2019-02-14 14:00] VITALS: BP 132/64; PULSE 76; RESP 18
[2019-02-14] MEDS ORDERED: SACC250C PO (14:30)
[2019-02-14] MEDS ORDERED: SULF1TAB31 PO (14:30)
--- NOTE | 2019-02-14 14:35 | PDOCDIS ---
Discharge Instructions DIAGNOSIS Discharge Diagnosis 1. infiltrating heterogeneous echogenicity lesion along the inferior and midportion of the left testicle measuring 2.0 x 1.0 x 1.3 cm. noted with left epididymoorchitis. 2. Urinary tract infection. 3. BPH. 4. Hypothyroidism. 5. Hypertension. 6. Microcytic hypochromic anemia. CONDITION [id number] Patient Condition: [id number] Stable HOME CARE INSTRUCTIONS: [id number] Diet Instructions: [id number] Low Fat /Cholesterol FOLLOW UP/APPOINTMENTS Follow-up Plan 1. Follow up with Dr. Jony Palma in one week Office Address [address] [address] Office GWEN KAISER NP Feb 14, 2019 14:35
--- NOTE | 2019-02-14 14:39 | DS ---
Date/Time of Note Date/Time of Note DATE: 02/14/19 TIME: 14:38 Discharge Summary Admission/Discharge Info Admit Date/Time Feb 12, 2019 at 15:13 Discharge Date/Time Discharge Diagnosis 1. infiltrating heterogeneous echogenicity lesion along the inferior and midp ortion of the left testicle measuring 2.0 x 1.0 x 1.3 cm. noted with left epididymoorchitis. 2. Urinary tract infection. 3. BPH. 4. Hypothyroidism. 5. Hypertension. 6. Microcytic hypochromic anemia. Patient Condition: Stable Hospital Course This is a 74-year-old male with history of hypertension, BPH, nephrolithiasis and hydronephrosis, TURP procedure in March 2018, who came to the hospital due to reports of testicular pain. Patient reports that he had recent prostate surgery in March 2018. He states that he is not sure if his current testicular pain is from that. Reports that for the past 4 months he has been having increased swelling on left testicle with associated pain. He does follow-up with his primary care provider in [place] Dr. Hernandez. He states that when he was examined by them previously that there was no mention for any seriousness for his pain. Due to increasing swelling and pain on left testicle patient did come to the hospital for further evaluation. Patient did get testicular ultrasound that did show Infiltrating heterogeneous echogenicity lesion along the inferior and midportion of the left testicle measuring 2.0 x 1.0 x 1.3 cm. Findings are suspicious for neoplasm. He also did have positive leukocyte esterase test suspicious for UTI. He was afebrile on arrival. No leukocytosis noted. Patient denies any other associated symptoms. Denies any chest pain or fever. Denies any weight loss. Only reports having increased t esticular pain. She was seen by ID consult as well as by urologist. Patient was noted with left epididymoorchitis per urologist. He also was noted with E. coli in the urine. We did optimize him with antibiotics. During his course of stay he did improve. He did report less testicular pain. He was advised for outpatient follow-up with urology. He was optimized medically with finasteride and tamsulosin for BPH and levothyroxine for hypothyroidism and antihypertensives for high blood pressure. The plan of care was discussed with the patient and patient verbalizes understanding. On the day of discharge patient was in stable condition Discussed POC with Dr. Queen [facility] Active Scripts Saccharomyces Boulardii* (Florastor*) 250 Mg Cap, 500 MG PO BID, #20 CAP Prov:GWEN KAISER EXTERIOR INTERIOR SPECIALIST 02/14/19 Sulfamethoxazole/Trimethoprim* (Bactrim Ds* Tablet) 1 Each Tablet, 1 TAB PO BID, #20 TAB Prov:GWEN KAISER EXTERIOR INTERIOR SPECIALIST 02/14/19 Reported Medications Lisinopril* (Lisinopril*) 20 Mg Tablet, 20 MG PO DAILY, #30 TAB 02/12/19 Labetalol Hcl* (Labetalol Hcl*) 100 Mg Tablet, 100 MG PO BID, TAB 02/12/19 Chlorthalidone* (Chlorthalidone*) 25 Mg Tablet, 25 MG PO DAILY, TAB 02/12/19 Levothyroxine Sodium* (Levothyroxine Sodium*) 50 Mcg Tablet, 50 MCG PO BEFORE BREAKFAST, #30 TAB 02/12/19 Amlodipine Besylate* (Amlodipine Besylate*) 10 Mg Tablet, 10 MG PO DAILY, #30 TAB 02/12/19 Finasteride* (Finasteride*) 5 Mg Tablet, 5 MG PO DAILY, TAB 02/12/19 Tamsulosin Hcl* (Flomax*) 0.4 Mg Cap.er.24h, 0.4 MG PO HS, CAP 02/12/19 Discontinued Reported Medications Tamsulosin Hcl* (Tamsulosin Hcl*) 0.4 Mg Cap.er.24h, 0.4 MG PO HS, CAP 03/27/18 Discontinued Scripts Levofloxacin* (Levaquin*) 500 Mg Tablet, 500 MG PO DAILY for 7 Days, #7 TAB Prov:CHRISTOPHER STEPHENSON 04/29/18 Follow-up Plan 1. Follow up with Dr. Jony Palma in one week Office Address [address] [facility] [address] [place] [address] Office Primary Care Provider Skip Rebolledo Time spent on discharge: > 30 minutes Pending Labs Laboratory Tests Test 02/14/19 08:27 White Blood Count 7.2 10^3/ul (4.8-10.8) Red Blood Count 5.17 10^6/ul (4.70-6.10) Hemoglobin 12.2 g/dl (14.0-18.0) Hematocrit 40.4 % (42.0-52.0) Mean Corpuscular Volume 78.1 fl (82.0-101.0) Mean Corpuscular Hemoglobin 23.6 pg (29.0-33.0) Mean Corpuscular Hemoglobin Concent 30.2 g/dl (32.0-37.0) Red Cell Distribution Width 20.0 % (11.5-14.5) Platelet Count 363 10^3/UL (140-415) Mean Platelet Volume 8.7 fl (7.4-10.4) Immature Granulocytes % 0.700 % (0.001-0.429) Neutrophils % 64.6 % (39.0-77.0) Lymphocytes % 23.4 % (15.0-51.0) Monocytes % 7.9 % (0.0-11.0) Eosinophils % 2.6 % (0.0-7.0) Basophils % 0.8 % (0.0-2.0) Nucleated Red Blood Cells % 0.0 /100WBC (0.0-0.0) Immature Granulocytes # 0.050 10^3/ul (0.0-0.031) Neutrophils # 4.6 10^3/ul (1.6-7.5) Lymphocytes # 1.7 10^3/ul (0.8-2.9) Monocytes # 0.6 10^3/ul (0.3-0.9) Eosinophils # 0.2 10^3/ul (0.0-0.5) Basophils # 0.1 10^3/ul (0.0-0.1) Nucleated Red Blood Cells # 0.0 10^3/ul (0.0-0.0) Sodium Level 141 mmol/L (135-144) Potassium Level 4.2 mmol/L (3.5-5.1) Chloride Level 105 mmol/L (97-110) Carbon Dioxide Level 23 mmol/L (21-31) Anion Gap 13 (5-13) Blood Urea Nitrogen 15 mg/dl (7-20) Creatinine 0.98 mg/dl (0.61-1.24) Est Glomerular Filtrat Rate mL/min mL/min (>60) Glucose Level 119 mg/dl (70-220) Calcium Level 10.5 mg/dl (8.4-10.2) GWEN KAISER NP Feb 14, 2019 14:39
--- NOTE | 2019-02-14 19:10 | PN ---
DATE: 02/14/2019 SUBJECTIVE: No acute events overnight. The patient is sleeping. Family at bedside. No fevers. WBC 7.2, neutrophils 64.6, BUN 15, creatinine 0.98. MICROBIOLOGY: Urine culture grew multi-drug resistant Escherichia coli, susceptible to tobramycin, B actrim, cefotaxime, and Gentamicin. ANTIMICROBIALS: The patient is on IV Rocephin. PHYSICAL EXAMINATION: GENERAL: This is a well-developed, elderly man who is in no distress. HEENT: Head atraumatic, normocephalic. NECK: Supple. CHEST: Rise symmetrical. Breath sounds clear. HEART: S1, S2. ABDOMEN: Soft, bowel sounds present. EXTREMITIES: No cyanosis. ASSESSMENT: 1. Left testicular pain secondary to epididymal orchitis, improved. 2. Escherichia coli urinary tract infection. 3. Benign prostatic hypertrophy. 4. Hypothyroidism and hypertension. PLAN: The patient remains stable, overall improving. Urology recommendations noted. Anticipate dis charge on oral Bactrim for 10 more days when the patient is cleared by urology. Dictated By: CHAPIS MEZA SOCIETY EDITOR for ALVIN VAZQUEZ/MAMTA Conf#: [id number] DID#: [id number] CC: MUSA SANDERS;*End*
== END 2019-02-14 16:13 | disposition home or self-care (01) | DRG 728 ==
LOC: E/R 10:43 → PP2 15:13
PROVIDERS: ADMIT Hospitalist; ATTEND Hospitalist
DX: N45.3 Epididymo-orchitis (principal); N39.0 Urinary tract infection, site not specified; N40.0 Benign prostatic hyperplasia without lower urinary tract symptoms; I10 Essential (primary) hypertension; E03.9 Hypothyroidism, unspecified; D50.9 Iron deficiency anemia, unspecified; B96.20 Unspecified Escherichia coli [E. coli] as the cause of diseases classified elsewhere; Z87.891 Personal history of nicotine dependence
CPT/HCPCS: 76870; 80048; 80053; 80061; 81001; 83036; 83540; 83735; 84100; 84436; 84443; 84479; 85025; 87086; 96374; J0696; J1650; J1885; J1956